=== PATIENT | male | born 2000 | race Caucasian/White ===

== ENCOUNTER 2023-11-11 11:16 | Day surgery (SDC) | payer OTHER ==
[2023-11-11] MEDS ORDERED: ceFAZolin 2 GM VIAL ONE (11:24)
[2023-11-11] MEDS ORDERED: metroNIDAZOLE 500 MG/100 ML 500 MG/100 ML BAG ONE (11:24)
[2023-11-11] MEDS ORDERED: LACTATED RINGERS 1,000 ML IV ONE (11:40)
[2023-11-11] MEDS ORDERED: LIDOCAINE 1%-EPI 1:100000 20 ML MDV ONE (12:28)
[2023-11-11] MEDS ORDERED: BUPIVACAINE 0.25% PF 10 ML VIAL ONE (12:29)
--- NOTE | 2023-11-11 12:40 | ANESTHESIA ---
Pre-Anesthesia VS, & Labs - Diagnosis pilonidal cyst - Procedure excision of pilonidal cyst Vital Signs: Temp Pulse Resp BP Pulse Ox O2 Flow Rate 36.5 C 70 13 152/79 H 100 11/11/23 11:35 11/11/23 11:35 11/11/23 11:35 11/11/23 11:35 11/11/23 11:35 Height: 5 ft 11 in Weight (kg): 87 kg Body Mass Index: 26.7 BMI Classification: Overweight - NPO >8 hours Home Medications and Allergies Home Medications: Ambulatory Orders No Known Home Medications 11/09/23 No Known Home Medications 11/09/23 Allergies/Adverse Reactions: Allergies Allergy/AdvReac Type Severity Reaction Status Date / Time No Known Drug Allergies Allergy Verified 11/09/23 14:34 Anes History & Medical History - Anesthetic History Anesthesia Complications: reports: No previous complications - Medical History Cardiovascular: reports: None Pulmonary: reports: None Gastrointestinal: reports: None Urinary: reports: None Musculoskeletal: reports: None Endocrine/Autoimmune: reports: None Skin: reports: None Smoking Status: Never smoker History of Cancer?: No - Surgical History Orthopedic: reports: Shoulder arthroplasty Exam General: Alert Dental: WNL Mouth Opening: Greater than 4 Fingerbreadths Neck Mobility: Normal Mallampati classification: I Respiratory: Lungs clear Cardiovascular: Regular rate, Normal S1, Normal S2 Plan Anesthesia Type: General Consent for Procedure(s) Verified and Reviewed: Yes Code Status: Attempt Resuscitation ASA classification: 1-Healthy patient Is this case an emergency?: No
[2023-11-11] MEDS ORDERED: ePHEDrine 50 MG/ML VIAL IVP PRN (12:41)
[2023-11-11] MEDS ORDERED: ATROPINE ABBOJECT 1 MG/10 ML SYRINGE IVP PRN (12:41)
[2023-11-11] MEDS ORDERED: ONDANSETRON 4 MG/2 ML VIAL IVP PRN (12:41)
[2023-11-11] MEDS ORDERED: fentaNYL 100 MCG/2 ML VIAL IVP PRN (12:41)
[2023-11-11] MEDS ORDERED: METOCLOPRAMIDE 10 MG/2 ML VIAL IVP PRN (12:41)
[2023-11-11] MEDS ORDERED: HYDROmorphone 0.5 MG/0.5 ML SYRINGE IVP PRN (12:41)
[2023-11-11] MEDS ORDERED: NALOXONE 0.4 MG/ML VIAL IVP PRN (12:41)
[2023-11-11] MEDS ORDERED: MORPHINE 2 MG/ML CARPUJECT IVP PRN (12:41)
[2023-11-11] MEDS ORDERED: PROPOFOL 200 MG/20 ML VIAL IVP ONE ×2 (12:53→14:19)
[2023-11-11] MEDS ORDERED: LIDOCAINE-PF 2% 10 ML AMP SUBQ ONE (12:53)
[2023-11-11] MEDS ORDERED: fentaNYL 100 MCG/2 ML VIAL ONE (12:57)
[2023-11-11] MEDS ORDERED: ROCURONIUM 50 MG/5 ML VIAL ONE (12:57)
[2023-11-11] MEDS ORDERED: MIDAZOLAM 2 MG/2 ML VIAL ONE ×2 (12:57→13:41)
[2023-11-11] MEDS ORDERED: ONDANSETRON 4 MG/2 ML VIAL ONE (12:57)
[2023-11-11] MEDS ORDERED: LACTATED RINGERS 1,000 ML IV SCH (13:00)
[2023-11-11] MEDS ORDERED: BUPIVACAINE 0.5% PF 10 ML VIAL SUBQ ONE (14:09)
[2023-11-11] MEDS ORDERED: LIDOCAINE 1%-EPI 1:100000 20 ML MDV SUBQ ONE (14:09)
[2023-11-11] MEDS ORDERED: SUGAMMADEX 200 MG/2 ML VIAL IVP ONE (14:18)
[2023-11-11] MEDS ORDERED: oxyCODONE 5 MG TABLET PO PRN (14:27)
--- NOTE | 2023-11-11 14:32 | OPERATIVE REPORT ---
Operative Report - General Procedure Date: 11/11/23 Planned Procedure: pilonidal cyst surgery Pre-Op Diagnosis: pilonidal cyst Procedure Performed: pilonidal cyst excision/ intermediate Post Op Diagnosis: pilonidal cyst - Procedure Note Primary Surgeon: shona luevano Anesthesia Technique: General ET tube, Local Pathology: benign/ not sent Estimated Blood Loss (mL): 2 Drain/Tube Type: Other (none) Indications: painful pilonidal Findings: 2 sinus tracts Complications: none - Other Other Information/Narrative: The patient was properly identified and brought to the operating room. General endotracheal anesthesia was induced and stretcher. The patient was carefully repositioned prone. Sequential compression devices were placed. Patient was prepped and draped in a sterile fashion and given preoperative antibiotics. Local anesthetic was given to the area. With an 11 blade small incisions were made around the sinus tracts. A left lateral incision was then made. Skin flap was then raised. The pilonidal cyst and chronic inflammatory tissue was then removed back to normal healthy tissue. Hemostasis was assured. Deep subcutaneous tissue was closed with interrupted 2-0 Vicryl suture. Buried interrupted subdermal 3-0 Vicryl sutures were then placed. Vertical mattress interrupted 3-0 nylon sutures were then placed. Dressing was applied. Patient was repositioned supine on the stretcher. Patient was then awakened and brought to recovery in good condition.
[2023-11-11] MEDS ORDERED: LACTATED RINGERS 500 ML IV ONE ×2 (14:44)
[2023-11-11 15:36] VITALS: O2SAT 98
[2023-11-11 15:45] VITALS: BP 123/72
--- NOTE | 2023-11-11 18:08 | ANESTHESIA POST OP EVALUATION ---
Anesthesia Post Eval - Post Anesthesia Eval Vitals: Last Vital Signs Temp 36.4 C L 11/11/23 15:35 Pulse 68 11/11/23 15:35 Resp 16 11/11/23 15:35 BP 123/72 11/11/23 15:35 Pulse Ox 98 11/11/23 15:35 O2 Flow Rate CV Function Including HR & BP: Stable Pain Control: Satisfactory Nausea & Vomiting: Negative Mental Status: Baseline Respiratory Status: Airway Patent Hydration Status: Satisfactory Anesthesia Complications: None
== END 2023-11-11 11:17 | disposition home or self-care (01) ==
LOC: SDS 11:16
PROVIDERS: ATTEND Surgery
DX: L05.91 Pilonidal cyst without abscess (principal)
CPT/HCPCS: 11771; J7120